=== PATIENT | male | born 1990 | race Caucasian/White ===

== ENCOUNTER → 2017-10-06 01:42 | Emergency (ER) | payer OTHER ==
[~2017-10-06 01:42] MED LIST: NS 0.9% 1000 ML* 1,000 ML IV ONE; Ondansetron INJ* 2 MG/ML VIAL IV ONE
[2017-10-06 04:02] LABS: Hematocrit 52 % (42-52); Hemoglobin 18.4 g/dl (14.0-18.0); Mean Corpuscular HGB Conc 36 g/dl (31-36); Mean Corpuscular Hemoglobin 32 pg (27-31); Mean Corpuscular Volume 89 fL (80-94); Mean Platelet Volume 7 um3 (7.4-10.4); Red Blood Count 5.78 10^6/ul (4.0-5.4); Red Cell Distribution Width 13 % (10.5-15); White Blood Count 13.3 10^3/ul (3.5-10.8)
[2017-10-06 04:03] LABS: Comments Flag Yes
[2017-10-06 04:07] LABS: BUN/Creatinine Ratio 17.2 (8-20); Calcium 9.9 mg/dL (8.6-10.3); EGFR African American 118.5 (>60); EGFR Non-African American 92.1 (>60); Potassium 3.8 mmol/L (3.5-5.0)
[2017-10-06 04:10] VITALS: BP 90/47
--- NOTE | 2017-10-06 04:22 | ED ---
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 Some cramping. No fever. Watery diarrhea without blood. No others known ill. Feels he had a bad sandwich with creme cheese and undercooked meat. Ate this just prior. - History of Current Complaint Chief Complaint: EDNauseaVomitDiarrh Stated Complaint: N/V/D, FEVER Time Seen by Provider: 10/06/17 03:25 Onset/Duration: Sudden Onset, Still Present Timing: Constant Severity Currently: Mild Pain Intensity: 5 Pain Scale Used: 0-10 Numeric - 2 - Allergies/Home Medications Allergies/Adverse Reactions: Allergies Allergy/AdvReac Type Severity Reaction Status Date / Time No Known Allergies Allergy Verified 10/06/17 03:38 PMH/Surg Hx/FS Hx/Imm Hx Previously Healthy: Yes - obese Infectious Disease History: No Infectious Disease History: Denies: Traveled Outside the [place] in Last 30 Days - Social History Occupation: Student - microbiology, works with non-pathogenic Pseudomonas Alcohol Use: None Hx Substance Use: No Substance Use Type: Reports: None Smoking Status (MU): Never Smoked Tobacco Review of Systems Positive: Fatigue. Negative: Fever Cardiovascular: Negative Respiratory: Negative Positive: Abdominal Pain, Vomiting, Diarrhea, Nausea Genitourinary: Negative Negative: Arthralgia All Other Systems Reviewed And Are Negative: Yes Physical Exam Triage Information Reviewed: Yes Vital Signs On Initial Exam: Initial Vitals Temp Pulse Resp BP Pulse Ox 36.9 C 116 18 140/77 99 10/06/17 01:54 10/06/17 01:54 10/06/17 01:54 10/06/17 01:54 10/06/17 01:54 Vital Signs Reviewed: Yes Appearance: Positive: Well-Appearing, No Pain Distress, Well-Nourished, Obese Skin: Positive: Warm, Dry Head/Face: Positive: Normal Head/Face Inspection Eyes: Positive: Normal, EOMI ENT: Positive: Pharynx normal. Negative: Nasal congestion Neck: Positive: Supple Respiratory/Lung Sounds: Positive: Clear to Auscultation, Breath Sounds Present Cardiovascular: Positive: RRR Abdomen Description: Positive: Nontender, Soft Bowel Sounds: Positive: Present, Hyperactive Musculoskeletal: Positive: Normal Neurological: Positive: Normal Psychiatric: Positive: Normal - Deb Coma Scale Coma Scale Total: 15 Diagnostics - Vital Signs Vital Signs Temp Pulse Resp BP Pulse Ox 10/06/17 04:10 38.7 C 103 22 90/47 100 10/06/17 01:54 36.9 C 116 18 140/77 99 - Laboratory Lab Results: Lab Results 10/06/17 10/06/17 Range/Units 03:40 03:40 WBC 13.3 H (3.5-10.8) 10^3/ul RBC 5.78 H (4.0-5.4) 10^6/ul Hgb 18.4 H (14.0-18.0) g/dl Hct 52 (42-52) % MCV 89 (80-94) fL MCH 32 H (27-31) pg MCHC 36 (31-36) g/dl RDW 13 (10.5-15) % Plt Count 227 (150-450) 10^3/ul MPV 7 L (7.4-10.4) um3 Neut % (Auto) 90.9 H (38-83) % Lymph % (Auto) 3.9 L (25-47) % [place] % (Auto) 4.7 (1-9) % Eos % (Auto) 0.3 (0-6) % Baso % (Auto) 0.2 (0-2) % Absolute Neuts (auto) 12.1 H (1.5-7.7) 10^3/ul Absolute Lymphs (auto) 0.5 L (1.0-4.8) 10^3/ul Absolute Monos (auto) 0.6 (0-0.8) 10^3/ul Absolute Eos (auto) 0 (0-0.6) 10^3/ul Absolute Basos (auto) 0 (0-0.2) 10^3/ul Absolute Nucleated RBC 0 10^3/ul Nucleated RBC % 0 Sodium 137 (133-145) mmol/L Potassium 3.8 (3.5-5.0) mmol/L Chloride 103 (101-111) mmol/L Carbon Dioxide 25 (22-32) mmol/L Anion Gap 9 (2-11) mmol/L BUN 17 (6-24) mg/dL Creatinine 0.99 (0.67-1.17) mg/dL Est GFR ( Amer) 118.5 (>60) Est GFR (Non-Af Amer) 92.1 (>60) BUN/Creatinine Ratio 17.2 (8-20) Glucose 121 H (70-100) mg/dL Calcium 9.9 (8.6-10.3) mg/dL Result Diagrams: 10/06/17 03:40 10/06/17 03:40 Lab Statement: Any lab studies that have been ordered have been reviewed, and results considered in the medical decision making process. Re-Evaluation - Re-Evaluation First Eval Re-Evaluation Time: 04:15 - with IV fluids Change: Improved Naus/Vom/Diarrhea Course/Dx - Course Course Of Treatment: pt with likely viral vs toxin borne illness. Well appearing. Labs as above. Tx symptomatically. Doesnt work with pathogenic strains. - Differential Dx/Diagnosis Differential Diagnoses - Male: Irritable Bowel Syndrome, Enterocolitis, Gastroenteritis (Viral), Gastroenteritis (Bacterial) Provider Diagnoses: acute gastroenteritis Condition At Discharge: Improved Discharge - Discharge Plan Condition: Improved Disposition: HOME Prescriptions: Hyoscyamine Sulfate [Levsin/Sl] 0.125 mg SL Q4H PRN #20 sub PRN Reason: Pain - Abdominal Ondansetron ODT TAB* [Zofran 4 MG Odt TAB*] 4 mg PO Q6H PRN #10 tab.odt PRN Reason: Nausea Patient Education Materials: Gastroenteritis (ED), Food Poisoning (ED) Forms: *School Release Referrals: [facility] - Lai SEGOVIA [Medical Doctor] -
== END | disposition home or self-care (01) ==
LOC: ED 01:42
DX: K52.9 Noninfective gastroenteritis and colitis, unspecified (principal)
CPT/HCPCS: 36415; 80048; 85025; 96360; 96374; 96376; 99282; J2405